=== PATIENT | female | born 1960 | race American Indian/Alaskan Native ===

== ENCOUNTER 2016-07-28 13:50 | Emergency (ER) | payer SELFPAY ==
[2016-07-28 15:02] LABS: Anion Gap 14 mmol/L; Blood Urea Nitrogen 20 mg/dL (7-17); Calcium 9.4 mg/dL (8.4-10.2); Carbon Dioxide 30 mmol/L (22-30); Chloride 100.7 mmol/L (98-107); Glucose 90 mg/dL (65-100); Potassium 4.1 mmol/L (3.6-5.0); Sodium 141 mmol/L (137-145)
[2016-07-28 15:03] LABS: Basophils % (Auto) 0.9 % (0.0-1.8); Eosinophils % (Auto) 2.1 % (0.0-4.3); Hematocrit 40.7 % (30.3-42.9); Hemoglobin 13.3 gm/dl (10.1-14.3); Mean Corpuscular HGB Conc 33 % (30-34); Mean Corpuscular Hemoglobin 33 pg (28-32); Mean Corpuscular Volume 100 fl (79-97); Platelet Count 273 K/mm3 (140-440); Red Blood Count 4.09 M/mm3 (3.65-5.03); Red Cell Distribution Width 14.1 % (13.2-15.2); White Blood Count 5.9 K/mm3 (4.5-11.0)
[2016-07-28] MEDS ORDERED: TORADOL IM ONE (20:28)
--- NOTE | 2016-07-28 20:47 | Emergency Department Report ---
ED Chest Pain HPI - General Chief Complaint: Chest Pain Stated Complaint: CP/PAIN LEFT ARM Time Seen by Provider: 07/28/16 20:20 Source: patient Mode of arrival: Ambulatory Limitations: No Limitations - History of Present Illness Initial Comments: 56 Year-old female with no significant past medical history presents to the hospital complaints of left shoulder pain and hard knots to the right chest wall for years that are gradually getting bigger. The last 2 days patient has had pain to left side of her neck and trapezius muscle extending down to the left arm. The aching pain radiates to the elbow with intermittent sharp pain extending more distally to the hand. Patient denies any recent trauma, weakness , or numbness. She denies left-sided anterior chest pain. Patient also states she has 2 nonpainful knots to her right chest wall for several years. Patient smokes cigarettes denies family history of CAD, hypertension, diabetes, or elevated cholesterol. No complaints of shortness of breath, nausea, vomiting, or fever.PMD: none - Related Data Previous Rx's Medication Instructions Recorded Last Taken Type Ibuprofen [Motrin] 600 mg PO Q8H PRN #30 tablet 07/28/16 Unknown Rx traMADol [Ultram 50 MG tab] 50 mg PO Q6HR PRN #20 tablet 07/28/16 Unknown Rx Allergies Allergy/AdvReac Type Severity Reaction Status Date / Time No Known Allergies Allergy Unverified 07/28/16 14:15 DORI score - Dori Score Age > 65: (0) No Aspirin use within the Past 7 Days: (0) No 3 or more CAD Risk Factors: (0) No 2 or more Angina events in past 24 hrs: (0) No Known CAD with more than 50% Stenosis: (0) No Elevated Cardiac Markers: (0) No ST Deviation Greater than 0.5mm: (0) No DORI Score: 0 ED Review of Systems ROS: Stated complaint: CP/PAIN LEFT ARM Other details as noted in HPI Comment: All other systems reviewed and negative Other: Constitutional: No fevers chills Eyes: No eye pain visual changes ENT: No ear pain or throat pain Neck: as per hpi Respiratory: Denies cough wheezing shortness of breath Cardiovascular: Denies chest pain, palpitations, syncope GI: Denies abdominal pain, nausea, vomiting, diarrhea : Denies dysuria Musculoskeletal: Denies back pain Skin:as per hpi Neurologic: Denies headache, numbness, weakness Psychiatric: Denies suicidal ideation, hallucinations ED Past Medical Hx - Past Medical History Previous Medical History?: No - Surgical History Additional Surgical History: X 2 - Social History Smoking Status: Current Every Day Smoker Substance Use Type: Alcohol, Cocaine, Marijuana - Medications Home Medications: Home Medications Medication Instructions Recorded Confirmed Last Taken Type Ibuprofen [Motrin] 600 mg PO Q8H PRN #30 tablet 07/28/16 Unknown Rx traMADol [Ultram 50 MG tab] 50 mg PO Q6HR PRN #20 tablet 07/28/16 Unknown Rx ED Physical Exam - General Limitations: No Limitations - Other Other exam information: General: No limitations, patient is alert in no acute distress Head exam: Atraumatic, normocephalic Eyes exam: Normal appearance ENT: Moist mucous membrane, normal oropharynx Neck exam: Normal inspection, full range of motion, tenderness to the left trapezius muscle area Respiratory exam: Clear to auscultation bilateral, no wheezes, rales, crackles Cardiovascular: Normal rate and rhythm, normal heart sounds Abdomen: Soft, nondistended, and nontender, with normal bowel sounds, no rebound, or guarding Extremity: Full range of motion normal inspection no deformity here mild pain with movement of left shoulder Back: Normal Inspection, full range of motion, no tenderness Neurologic: Alert, oriented x3, cranial nerves intact, no motor or sensory deficit Psychiatric: normal affect, normal mood Skin: Right upper chest wall below A couple 2 cm well-defined mass palpated. At upper portion of right breast area there is a 4 cm well-circumscribed firm soft tissue mass. Clinically consistent with lipoma however, further workup is required ED Course Vital Signs 07/28/16 14:16 Temperature 98.4 F Pulse Rate 61 Respiratory 20 Rate Blood Pressure 167/96 O2 Sat by Pulse 100 Oximetry ED Medical Decision Making - Lab Data Result diagrams: 07/28/16 14:25 07/28/16 14:25 Lab Results 07/28/16 07/28/16 07/28/16 Range/Units 14:25 14:25 18:15 WBC 5.9 (4.5-11.0) K/mm3 RBC 4.09 (3.65-5.03) M/mm3 Hgb 13.3 (10.1-14.3) gm/dl Hct 40.7 (30.3-42.9) % MCV 100 H (79-97) fl MCH 33 H (28-32) pg MCHC 33 (30-34) % RDW 14.1 (13.2-15.2) % Plt Count 273 (140-440) K/mm3 Lymph % (Auto) 40.7 H (13.4-35.0) % [place] % (Auto) 6.4 (0.0-7.3) % Eos % (Auto) 2.1 (0.0-4.3) % Baso % (Auto) 0.9 (0.0-1.8) % Lymph # 2.4 (1.2-5.4) K/mm3 [place] # 0.4 (0.0-0.8) K/mm3 Eos # 0.1 (0.0-0.4) K/mm3 Baso # 0.1 (0.0-0.1) K/mm3 Seg Neutrophils % 49.9 (40.0-70.0) % Seg Neutrophils # 2.9 (1.8-7.7) K/mm3 Sodium 141 (137-145) mmol/L Potassium 4.1 (3.6-5.0) mmol/L Chloride 100.7 (98-107) mmol/L Carbon Dioxide 30 (22-30) mmol/L Anion Gap 14 mmol/L BUN 20 H (7-17) mg/dL Creatinine 0.8 (0.7-1.2) mg/dL Estimated GFR > 60 ml/min BUN/Creatinine Ratio 25.00 % Glucose 90 (65-100) mg/dL Calcium 9.4 (8.4-10.2) mg/dL Troponin T < 0.010 < 0.010 (0.00-0.029) ng/mL - EKG Data -: EKG Interpreted by Me (nsr 61, lae, possible anteroseptal infarct) - EKG Data When compared to previous EKG there are: previous EKG unavailable - Differential Diagnosis msk pain, radiculopathy, lipoma, mass, cancer Critical Care Time: No Critical care attestation.: If time is entered above; I have spent that time in minutes in the direct care of this critically ill patient, excluding procedure time. ED Disposition Clinical Impression: Neck pain, musculoskeletal, Radicular pain in left arm, Mass of subcutaneous tissue, Breast mass Disposition: DISCHARGED TO HOME OR SELFCARE Is pt being admited?: No Does the pt Need Aspirin: No Condition: Stable Instructions: Lipoma (ED), Cervical Sprain (ED), Cervical Radiculopathy (ED), Breast Mass (ED) Additional Instructions: Take the medication as prescribed. Return if symptoms worsen. It is very important in that she follow up with a primary care doctor and specialist for further evaluation of your symptoms and the knots in her chest. This could be a lipoma or fatty tissue however, given that they're located at the breast you will need additional workup to rule out other causes. Prescriptions: Ibuprofen [Motrin] 600 mg PO Q8H PRN #30 tablet PRN Reason: Pain traMADol [Ultram 50 MG tab] 50 mg PO Q6HR PRN #20 tablet PRN Reason: Pain Referrals: [facility] [Provider Group] - 3-5 Days (Primary care clinic) [facility] 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
[2016-07-28 21:02] VITALS: BP 139/65
== END 2016-07-28 21:21 | disposition home or self-care (01) ==
LOC: ED 13:50
DX: M54.2 Cervicalgia (principal); M79.602 Pain in left arm; N63 Unspecified lump in breast; M79.1 Myalgia; F17.200 Nicotine dependence, unspecified, uncomplicated; F14.10 Cocaine abuse, uncomplicated; F12.10 Cannabis abuse, uncomplicated
CPT/HCPCS: 36415; 80048; 84484; 85025; 93005; 93010; 96372; 99284; J1885